=== PATIENT | female | born 1945 | race Caucasian/White ===

== ENCOUNTER 2016-09-03 06:02 | Day surgery (SDC) | payer OTHER ==
[~2016-09-03] VITALS: Ht 154.9 cm; Wt 71.4 kg
[~2016-09-03 06:02] MED LIST: AMBI10TA PO; ATOR20TA15 PO; CALCCHW9 CHEW; FOSA70TA PO; LETR2.5T PO; LEVO88TA2 PO; LISI10TA3 PO; LORA-373 PO; METF1000 PO; OXYC1TAB35 PO; PROC10TA PO; ZOFR4TAB PO
[2016-09-03] MEDS ORDERED: DICL1CAP4 PO (06:45)
[2016-09-03] MEDS ORDERED: DICL75TA PO (06:46)
[2016-09-03 06:54] VITALS: BP 162/58; PULSE 89; RESP 20; TEMP 98.4; O2SAT 93
[2016-09-03] MEDS ORDERED: VANCOMYCIN 1000 MG/NS 250 ML - implanted port/tunneled catheter IV SCH ×2 (07:00)
[2016-09-03] MEDS ORDERED: MUPIROCIN 2% OINT 1 APPLIC/GM SYR EACH NARE SCH (07:00)
[2016-09-03] MEDS ORDERED: SODIUM CHLORIDE 0.9% 1000 ML IV SCH (07:00)
[2016-09-03] MEDS ORDERED: CHLORHEXIDINE GLUCONATE 2 % 1 PACK (2 CLOTHS) TOPICAL SCH (07:00)
[2016-09-03] MEDS ORDERED: POVIDONE IODINE 5% (ANTISEPSIS KIT) 4 APPLICATIONS EACH NARE SCH (07:00)
[2016-09-03 07:18] LABS: APTT (PATIENT) 29.2 SEC (24.3-30.1); PROTHROMBIN TIME - PATIENT 10.6 SEC (9.8-11.6)
[2016-09-03] MEDS ORDERED: MIDAZOLAM HCL 5 MG/5 ML VIAL ONE (07:40)
[2016-09-03] MEDS ORDERED: fentaNYL CITRATE 250 MCG/5 ML AMP ONE (07:40)
[2016-09-03] MEDS ORDERED: LIDOCAINE 1%/EPINEPHrine 1:100,000 SOLN 20 ML VIAL ONE (08:05)
[2016-09-03] MEDS ORDERED: MIDAZOLAM HCL 2 MG/2 ML VIAL ONE (08:37)
--- NOTE | 2016-09-03 08:58 | PD.RAD ---
Post Procedure Progress Note Pre Procedure Diagnosis: (1) Breast cancer Post Procedure Diagnosis: (1) Breast cancer Procedure Date: Sep 03, 2016 Supervising Radiologist: Franklin Bates Anesthesia: Local, Conscious Sedation Plan of Activity Patient to Unit: ROPU Patient Condition: Good Additional Comments: Port place via the right IJ. Port in good position OK for use. See PACS Report for procedural detail/treatment Franklin Bates MD Sep 03, 2016 08:58
[2016-09-03 09:00] VITALS: BP 157/70; PULSE 100; RESP 16; TEMP 97.7; O2SAT 92
[2016-09-03] MEDS ORDERED: SODIUM CHLORIDE 0.9% FLUSH 5 ML FLUSH IVF PRN (09:00)
[2016-09-03 09:15] VITALS: BP 144/62; PULSE 93; RESP 16; O2SAT 95
[2016-09-03 09:45] VITALS: BP 171/72; PULSE 98; RESP 16; O2SAT 94
[2016-09-03 10:15] VITALS: BP 140/67; PULSE 94; RESP 16; O2SAT 94
[2016-09-03 10:45] VITALS: BP 135/63; PULSE 93; RESP 16; O2SAT 92
--- NOTE | 2016-09-03 16:48 | RADRPT ---
EXAM DATE/TIME: 09/03/2016 07:50 [facility] COMPARISON: No previous studies available for comparison. INDICATIONS : Breast cancer. Needs chemo therapy. MEDICAL HISTORY : 1.HTN 2. DM 3.Thyroid disease SURGICAL HISTORY : 1. Hysterectomy 2.Appy 3. Lumpectomy ENCOUNTER: Initial ACUITY: 1 week PAIN SCORE: FLUORO TIME: 0.7 minutes SEDATION TIME: 30 minutes ACCESS: Right internal jugular vein SEDATION: 1.) 6 mg midazolam (Versed) IV 2.) 300 mcg fentanyl (Sublimaze) IV Prophylactic antibiotics were administered with appropriate pre-procedure timing. Vancomycin within 2 hours of procedure, Ancef (or alternative) within 1 hour of procedure. DEVICE: 1. 8 [place] single lumen Bard Power Port PROCEDURE : 1. Continuous pulse oximetry and EKG monitoring. 2. Intravenous conscious sedation. 3. Ultrasound guidance for venous access. 4. Fluoroscopic guided implantable central venous port placement. The patient was placed supine. The neck was prepped in sterile fashion. Full sterile technique was u sed, including cap, mask, sterile gloves and gown, and a large sterile sheet. Hand hygiene and 2% ch lorhexidine Betadine was utilized per protocol for cutaneous antisepsis with appropriate dry time for site. The skin and subcutaneous tissues were infiltrated with local anesthetic solution. Under direct ultrasound guidance, central venous access was accomplished in the targeted vessel. The ultrasound images depicting access guidance were stored and saved to PACS for permanent record. A s ubcutaneous pocket was created using blunt dissection. The port was introduced to the pocket. The c atheter tubing was fed through a subcutaneous tunnel to the venotomy site. The catheter tubing was c ut to a suitable length and then was introduced through a valved Peel-Away sheath and positioned with catheter tubing tip at the cavo-atrial junction level. The pocket incision was closed with subcutic ular Vicryl suture. Steri-Strips were applied. The port was flushed and locked with heparin solutio n per protocol. Sterile dressing was applied to the site. The patient tolerated the procedure well. Conscious sedation was performed with the prescribed dosages and duration as above. The patient riley ated the procedure well and there were no complications. EKG and oximetry remained stable throughout the procedure. The patient was sent to post anesthesia recovery in stable condition. CONCLUSION: Uncomplicated ultrasound and fluoroscopic guided implanted central venous port catheter placement as described in detail above. An 8 [place] Power port was placed. Franklin Bates MD on September 03, 2016 at 16:46 Board Certified Radiologist. This report was verified electronically.
== END 2016-09-03 10:50 | disposition home or self-care (01) ==
LOC: HROP 06:02 → HRIP 06:03 → HROP 10:50
DX: Z45.2 Encounter for adjustment and management of vascular access device (principal); C50.412 Malignant neoplasm of upper-outer quadrant of left female breast; I10 Essential (primary) hypertension; E11.9 Type 2 diabetes mellitus without complications; E07.9 Disorder of thyroid, unspecified; Z79.01 Long term (current) use of anticoagulants
CPT/HCPCS: 36561; 76937; 77001; 85610; 85730; C1788; J1642; J2250; J3010; J3370; J7030; J7050; 99152; 99153